=== PATIENT | female | born 1970 | race Caucasian/White ===

== ENCOUNTER → 2020-01-22 11:33 | Outpatient (CLI) | payer OTHER, MEDICAID ==
[2012-05-11 21:46] VITALS: BMI 28.3
[2020-01-22 12:54] LABS: T4 THYROXINE 6.4 ug/dL (4.7-13.3); THYROID STIMULATING HORMONE 1.07 uIU/mL (0.36-3.74)
== END | disposition home or self-care (01) ==
LOC: D.LAB 08:30 → D.NM 11:30 → D.LAB 11:33
PROVIDERS: ATTEND Internal Medicine Gastroenterology
DX: R93.3 Abnormal findings on diagnostic imaging of other parts of digestive tract (principal)